=== PATIENT | female | born 1970 | race Caucasian/White ===

== ENCOUNTER 2024-08-23 15:47 | Inpatient (IN) ==
[2024-08-23] MEDS ORDERED: IOPAMIDOL 100 ML BOTTLE IV ONE (15:48)
[2024-08-23] MEDS: 0.9 % SODIUM CHLORIDE 1,710 ML IV ONE (16:23)
[2024-08-23 16:32] LABS: Basophils # (Auto) 0.01 K/mcL (0.00-0.30); Basophils % (Auto) 0 % (0.0-2.0); Eosinophils # (Auto) 0 K/mcL (0.00-0.70); Eosinophils % (Auto) 0 % (0.0-7.0); Hematocrit 47.6 % (34.1-44.9); Hemoglobin 15.8 g/dL (11.2-15.7); Lymphocytes # (Auto) 1.52 K/mcL (1.50-4.80); Lymphocytes % (Auto) 7.5 % (15.5-49.0); Mean Cell Volume 90.5 fL (80.0-100.0); Mean Corpuscular HGB Conc 33.2 g/dL (31.0-36.0); Mean Platelet Volume 9.7 fL (8.8-12.5); Monocytes # (Auto) 1.86 K/mcL (0.10-0.90); Monocytes % (Auto) 9.2 % (1.0-12.0); Neutrophils % (Auto) 82.8 % (38.0-78.0); Platelet Count 182 K/mcL (140-440); RBC 5.26 M/mcL (3.59-5.38); WBC 20.2 K/mcL (4.5-11.0)
[2024-08-23 16:47] LABS: Prothrombin Time 13.6 sec (11.9-14.5)
[2024-08-23 17:06] LABS: ALT/SGPT 20 U/L (<40); AST/SGOT 21 U/L (<32); Albumin/Globulin Ratio 1.2 (1.0-2.3); Alkaline Phosphatase 60 U/L (39-117); Bilirubin,Total 1.2 mg/dL (0.1-1.0); Blood Urea Nitrogen 16 mg/dL (6-20); Carbon Dioxide 25 mmol/L (22-30); Chloride 92 mmol/L (96-108); Globulin 3.3 gm/dL (2.2-3.7); Glomerular Filtration Rate 51; Glucose 150 mg/dL (70-105); Potassium 3.6 mmol/L (3.3-5.1); Sodium 137 mmol/L (133-145); Thyroid Stimulating Hormone 0.53 uIU/mL (0.27-5.01)
[2024-08-23 17:29] LABS: Free T4 (Free Thyroxine) 1.33 ng/dL (0.93-1.70)
[2024-08-23] MEDS: cefTRIAXone 1 GM VIAL IV ONE ×2 (17:40→17:52)
[2024-08-23] MEDS ORDERED: ONDANSETRON 4 MG/2 ML VIAL IV PRN (17:49)
[2024-08-23] MEDS ORDERED: DEXTROSE 31 GM ORAL.SUSP PO PRN (17:49)
[2024-08-23] MEDS ORDERED: IPRATROPIUM/ALBUTEROL 3 ML AMPUL.NEB NEB PRN (17:49)
[2024-08-23] MEDS ORDERED: DEXTROSE 50% 50 ML VIAL IV PRN (17:49)
[2024-08-23 17:54] LABS: Appearance,Urine Clear (Clear); Bacteria,Urine Few /hpf (0); Bilirubin,Urine Moderate mg/dL (Negative); Color,Urine Yellow; Glucose,Urine (UA) >=1000 mg/dL (Negative); Ketones,Urine >=160 mg/dL (Negative); Leukocyte Esterase,Urine Negative /uL (Negative); Nitrate,Urine Positive (Negative); Protein,Urine 100 mg/dL (Negative); Specific Gravity,Urine 1.015 (1.000-1.035); Urine Blood Trace-intact ery/mcL (Negative); Urine RBC 10 /hpf (0-3); Urine Squamous Epithelial Cell 20 /hpf (0-4); Urine WBC 35 /hpf (0-4); Urobilinogen,Urine Normal
[2024-08-23] MEDS: MAGNESIUM SULFATE 2 GM/50 ML BAG IV ONE ×2 (17:54→18:43)
[2024-08-23] MEDS: MAGNESIUM SULFATE 4 GM/100 ML BAG IV ONE (18:24)
[2024-08-23] MEDS: ACETAMINOPHEN 325 MG TABLET PO PRN (19:35)
[2024-08-23] MEDS: 0.9 % SODIUM CHLORIDE 1,000 ML IV SCH (20:20)
[2024-08-23] MEDS ORDERED: LORATADINE 10 MG TABLET PO PRN (20:42)
[2024-08-23] MEDS: 0.9 % SODIUM CHLORIDE 10 ML SYRINGE IV SCH (20:53)
[2024-08-23] MEDS ORDERED: METOPROLOL TARTRATE 5 MG/5 ML VIAL IV PRN ×2 (21:02→22:02)
[2024-08-23] MEDS: SENNOSIDES 1 TABLET PO SCH (21:56)
[2024-08-23] MEDS: VENLAFAXINE 37.5 MG TAB.ER.24H PO SCH (21:56)
[2024-08-23] MEDS: METOPROLOL TARTRATE 25 MG TABLET PO SCH (21:57)
[2024-08-23] MEDS: traZODone HCL 50 MG TABLET PO SCH (21:57)
[2024-08-23] MEDS: INSULIN LISPRO 1 UNIT/0.01 ML UNIT SQ SCH (21:57)
[2024-08-23] MEDS: DOCUSATE SODIUM 100 MG CAPSULE PO SCH (21:57)
[2024-08-23] MEDS: METHOCARBAMOL 750 MG TABLET PO SCH (21:57)
[2024-08-23] MEDS: ACETAMINOPHEN 500 MG TABLET PO SCH (21:58)
[2024-08-24 05:46] LABS: Basophils # (Auto) 0.01 K/mcL (0.00-0.30); Basophils % (Auto) 0.1 % (0.0-2.0); Eosinophils # (Auto) 0.02 K/mcL (0.00-0.70); Eosinophils % (Auto) 0.2 % (0.0-7.0); Hematocrit 39.6 % (34.1-44.9); Hemoglobin 13.2 g/dL (11.2-15.7); Lymphocytes # (Auto) 0.87 K/mcL (1.50-4.80); Lymphocytes % (Auto) 6.6 % (15.5-49.0); Mean Cell Volume 89.6 fL (80.0-100.0); Mean Corpuscular HGB Conc 33.3 g/dL (31.0-36.0); Mean Platelet Volume 9.4 fL (8.8-12.5); Monocytes # (Auto) 0.96 K/mcL (0.10-0.90); Monocytes % (Auto) 7.3 % (1.0-12.0); Neutrophils % (Auto) 85.4 % (38.0-78.0); Platelet Count 147 K/mcL (140-440); RBC 4.42 M/mcL (3.59-5.38); WBC 13.2 K/mcL (4.5-11.0)
[2024-08-24 06:07] LABS: ALT/SGPT 15 U/L (<40); AST/SGOT 16 U/L (<32); Albumin 3.4 gm/dL (3.2-5.2); Albumin/Globulin Ratio 1.1 (1.0-2.3); Alkaline Phosphatase 51 U/L (39-117); Bilirubin,Total 0.7 mg/dL (0.1-1.0); Blood Urea Nitrogen 16 mg/dL (6-20); Calcium 8.1 mg/dL (8.6-10.4); Carbon Dioxide 24 mmol/L (22-30); Chloride 94 mmol/L (96-108); Glomerular Filtration Rate 57; Glucose 128 mg/dL (70-105); Potassium 3.4 mmol/L (3.3-5.1); Sodium 133 mmol/L (133-145)
[2024-08-24 07:16] LABS: Estimated Average Glucose(eAG) 151 mg/dL; Hemoglobin A1C 6.9 % Hgb (4.0-6.0)
[2024-08-24] MEDS: LEVOTHYROXINE 100 MCG TABLET PO SCH (07:35)
[2024-08-24] MEDS: ASCORBIC ACID 500 MG TABLET PO SCH (10:16)
[2024-08-24] MEDS: MELOXICAM 7.5 MG TABLET PO SCH (10:17)
[2024-08-24] MEDS: ATORVASTATIN 40 MG TABLET PO SCH (10:17)
[2024-08-24] MEDS: MAGNESIUM OXIDE 400 MG TABLET PO SCH (10:17)
[2024-08-24] MEDS: OMEPRAZOLE 20 MG CAPSULE PO SCH (10:17)
[2024-08-24] MEDS: Empagliflozin 10 mg tablet PO SCH (10:18)
[2024-08-24] MEDS: ENOXAPARIN 40 MG/0.4 ML SYRINGE SQ SCH (10:18)
[2024-08-24] MEDS: MULTIVIT,THER IRON,CA,FA & MIN 1 TABLET PO SCH (10:18)
[2024-08-24] MEDS: cefTRIAXone 2 GM in DEXTROSE 5% IN WATER 50 ML IV SCH (10:19)
[2024-08-24] MEDS: ACETAMINOPHEN 650 MG/65 ML BAG IV PRN (17:04)
[2024-08-24] MEDS: POTASSIUM CHLORIDE 10 MEQ TABLET PO SCH (17:05)
[2024-08-25 06:36] LABS: Basophils # (Auto) 0.01 K/mcL (0.00-0.30); Basophils % (Auto) 0.1 % (0.0-2.0); Eosinophils # (Auto) 0.04 K/mcL (0.00-0.70); Eosinophils % (Auto) 0.6 % (0.0-7.0); Hematocrit 35.4 % (34.1-44.9); Hemoglobin 11.8 g/dL (11.2-15.7); Lymphocytes # (Auto) 0.69 K/mcL (1.50-4.80); Lymphocytes % (Auto) 9.9 % (15.5-49.0); Mean Cell Volume 90.5 fL (80.0-100.0); Mean Corpuscular HGB Conc 33.3 g/dL (31.0-36.0); Mean Platelet Volume 10.3 fL (8.8-12.5); Monocytes # (Auto) 0.73 K/mcL (0.10-0.90); Monocytes % (Auto) 10.4 % (1.0-12.0); Neutrophils % (Auto) 78.6 % (38.0-78.0); Platelet Count 117 K/mcL (140-440); RBC 3.91 M/mcL (3.59-5.38); Red Cell Distribution Width 13.1 % (11.5-14.5)
[2024-08-25 06:49] LABS: ALT/SGPT 17 U/L (<40); AST/SGOT 26 U/L (<32); Albumin 3.1 gm/dL (3.2-5.2); Albumin/Globulin Ratio 1.1 (1.0-2.3); Alkaline Phosphatase 52 U/L (39-117); Bilirubin,Total 0.4 mg/dL (0.1-1.0); Blood Urea Nitrogen 13 mg/dL (6-20); Calcium 7.4 mg/dL (8.6-10.4); Carbon Dioxide 23 mmol/L (22-30); Chloride 98 mmol/L (96-108); Globulin 2.9 gm/dL (2.2-3.7); Glomerular Filtration Rate 83; Glucose 152 mg/dL (70-105); Potassium 3.4 mmol/L (3.3-5.1); Sodium 134 mmol/L (133-145)
[2024-08-25] MEDS: ESTRADIOL 1 MG TABLET PO SCH (08:48)
[2024-08-25] MEDS ORDERED: NON FORMULARY MEDICATION 1 DOSE MISCELL (Progesterone Micronized 100 mg capsule) PO SCH (09:00)
[2024-08-25 12:09] VITALS: TEMP 98.7; O2SAT 94
[2024-08-25] MEDS: SUMAtriptan SUCCINATE 50 MG TABLET PO ONE (12:34)
== END 2024-08-25 14:50 | disposition home health service (06) | DRG 872 ==
LOC: ED 15:47 → MEDSUR 18:53
PROVIDERS: ADMIT Internal Medicine; ATTEND Internal Medicine